=== PATIENT | male | born 1975 | race African-American/Black ===

== ENCOUNTER 2023-03-22 15:24 | Outpatient (RCR) | payer OTHER | END 2023-03-28 | LOC: WCC 15:24 | PROVIDERS: ATTEND Internal Medicine Infectious Disease | DX: L89.150 Pressure ulcer of sacral region, unstageable (principal) ==

== ENCOUNTER 2023-04-19 10:05 | Outpatient (RCR) | payer OTHER | END 2023-04-28 | LOC: WCC 10:05 | PROVIDERS: ATTEND Internal Medicine Infectious Disease | DX: L89.150 Pressure ulcer of sacral region, unstageable (principal) ==

== ENCOUNTER 2023-05-24 11:27 | Outpatient (RCR) | payer OTHER ==
[~2023-05-24 11:27] MED LIST: SODIUM CHLORIDE 0.9% INJ 250 ML BAG ONE
== END 2023-05-28 ==
LOC: WCC 11:27
PROVIDERS: ATTEND Internal Medicine Infectious Disease
DX: L89.150 Pressure ulcer of sacral region, unstageable (principal)
CPT/HCPCS: 11042; 97605 ×3; 99212 ×4; J7050

== ENCOUNTER → 2023-06-02 | Outpatient (CLI) | payer OTHER | LOC: MRI 08:04 | PROVIDERS: ATTEND Internal Medicine Infectious Disease | DX: L89.154 Pressure ulcer of sacral region, stage 4 (principal) | CPT/HCPCS: 72195 ==

== ENCOUNTER → 2023-09-27 | Outpatient (REF) | payer OTHER | LOC: WCC 10:39 | PROVIDERS: ATTEND Internal Medicine Infectious Disease | DX: L89.154 Pressure ulcer of sacral region, stage 4 (principal) ==

== ENCOUNTER → 2023-10-11 | Outpatient (REF) | payer OTHER | LOC: WCC 12:30 | PROVIDERS: ATTEND Internal Medicine Infectious Disease | DX: L89.154 Pressure ulcer of sacral region, stage 4 (principal) ==